=== PATIENT | male | born 1960 | race Caucasian/White ===

== ENCOUNTER → 2017-12-29 | Day surgery (SDC) | payer OTHER ==
[~2017-12-29] VITALS: Ht 175.3 cm; Wt 100.0 kg
[~2017-12-29] MED LIST: AMLO10TA2 PO; ARTIFICIAL TEARS OPTH OINT 3.5 APPLIC/3.5 GM TUBO ONE; ASPI-183 PO; BACITRACIN TOP OINT 15 GM TUBE ONE; BUPIVACAINE/EPINEPHRINE 0.25% 50 ML VIAL ONE; CEPH-460 PO; CHLORHEXIDINE GLUCONATE 2 % 1 PACK (2 CLOTHS) TOPICAL PRN; HYDR25TA5 PO; LACTATED RINGER'S 1000 ML IV PRN; LISI40TA PO; METOPROLOL TARTRATE 25 MG TAB PO PRN; PERC5TAB12 PO; POVIDONE IODINE 5% (ANTISEPSIS KIT) 4 APPLICATIONS EACH NARE PRN; SODIUM CHLORID 0.9% 500 ML IV PRN; TRAZ50TA12 PO; ceFAZolin 1,000 MG/NS 100 ML IV SCH; fentaNYL CITRATE 250 MCG/5 ML AMP ONE
--- NOTE | 2017-12-29 11:34 | EKG ---
Date Performed: 12/29/2017 Time Performed: 09:46:48 PTAGE: 57 years EKG: Sinus rhythm NORMAL ECG NO PREVIOUS TRACING DOCTOR: Se Rodgers Interpretating Date/Time 12/29/2017 11:33:20
[2017-12-29 12:38] VITALS: PULSE 95
[2017-12-29 13:10] VITALS: PULSE 78; TEMP 98
[2017-12-29 13:35] VITALS: BP 113/85; PULSE 85; RESP 14; O2SAT 93
--- NOTE | 2017-12-29 17:11 | PD.OP ---
Operative Report Date of Surgery: Dec 29, 2017 Preoperative Diagnosis: (1) Basal cell carcinoma, eyelid (2) Basal cell carcinoma of right cheek Postoperative Diagnosis: (1) Basal cell carcinoma, eyelid (2) Basal cell carcinoma of right cheek Procedure: Wide local excision of right cheek and right eyelid basal cell carcinomas (25926 , [id number]) Surgeon: Vincent Santiago Wellness Nurse(s): . Operation and Findings: The patient is a 57-year-old male who presented to clinic with biopsy-proven right eyelid and right cheek basal cell carcinomas. Risks benefits and alternative treatments were discussed. The patient elected to assume the risks of wide local excision of the above 2 lesions. Informed consent was therefore obtained. The surgical sites were marked in the preoperative holding pain. The patient was taken to the operating room. All pressure points were padded. After the smooth induction of general anesthesia, the lesions were outlined. A 4 mm circumferential margin around each lesion was outlined. The surgical sites were instilled with quarter percent Marcaine with epinephrine. The surgical site was prepped and draped in the usual sterile fashion. The right cheek lesion was excised just deep to the dermal layer. The lesion was marked. Hemostasis was obtained. Attention was then turned to the right eyelid lesion. The outlined margin was incised. The Ish scissors were used to excise the lesion just deep to the dermis. Hemostasis was obtained. This lesion was also marked, and both lesions were sent for frozen and permanent pathology. Frozen pathology was negative. Per the preoperative discussion, the plan was for a skin graft to be placed over the eyelid wound following negative permanent pathology. As such this wound was dressed bacitracin Xeroform and a Tegaderm. The cheek lesion was cinched further close, though not completely due to tension with a 4-0 PDS pursestring suture. This lesion was also dressed with bacitracin Xeroform and a Tegaderm. All needle sponge and instrument counts were correct 2. The patient was awoken from anesthesia and arrive stable and doing well to the PACU. Vincent Santiago MD Dec 29, 2017 17:11
== END | disposition home or self-care (01) ==
LOC: PHSDC 08:16
PROVIDERS: ATTEND Student in an Organized Health Care Education/Training Program
DX: C44.112 Basal cell carcinoma of skin of right eyelid, including canthus (principal); C44.319 Basal cell carcinoma of skin of other parts of face; I10 Essential (primary) hypertension
CPT/HCPCS: 00300; 11642; 11643; 88305; 88331; 93005; J0690; J3010; J7120